=== PATIENT | female | born 1935 | race Caucasian/White ===

== ENCOUNTER 2021-08-15 02:05 | Observation (INO) ==
[2021-08-15] MEDS ORDERED: Ondansetron ODT 4 MG TAB.RAPDIS SL PRN (04:54)
[2021-08-15] MEDS ORDERED: Melatonin 3 MG TABLET PO PRN (04:54)
[2021-08-15] MEDS ORDERED: Naloxone 0.4 MG/ML INJ IVP PRN (04:54)
[2021-08-15] MEDS ORDERED: Gadolinium Contrast Agent (WT Based) IV PRN (04:59)
[2021-08-15] MEDS: lisinopriL 20 MG TABLET PO SCH (12:40)
[2021-08-15] MEDS: amLODIPine 5 MG TABLET PO SCH (12:40)
[2021-08-15] MEDS: *HR* Metformin 500 MG TABLET PO SCH ×2 (12:43→17:06)
[2021-08-15] MEDS: *HR* HYDROcodone/Acet 5/325 mg TABLET PO PRN (15:27)
[2021-08-16] MEDS ORDERED: *HR* Enoxaparin 40 MG/0.4 ML SYRINGE SQ SCH (06:00)
[2021-08-16] MEDS: *HR* Metformin 500 MG TABLET PO SCH ×2 (07:46→17:06)
[2021-08-16] MEDS: amLODIPine 5 MG TABLET PO SCH (09:29)
[2021-08-16] MEDS: lisinopriL 20 MG TABLET PO SCH (09:29)
[2021-08-16] MEDS: *HR* HYDROcodone/Acet 5/325 mg TABLET PO PRN (13:51)
[2021-08-16 16:22] VITALS: BP 134/75; PULSE 90; RESP 16; TEMP 99.1; O2SAT 92
== END 2021-08-16 18:30 | disposition short-term general hospital (02) ==
LOC: INPPIK
PROVIDERS: ADMIT Internal Medicine; ATTEND Internal Medicine